=== PATIENT | male | born 1985 | race Hispanic/Latino ===

== ENCOUNTER 2021-05-13 11:29 | Emergency (ER) | payer OTHER ==
[~2021-05-13] VITALS: Ht 154.9 cm; Wt 86.2 kg
[2021-05-13 12:51] VITALS: BP 115/75
== END 2021-05-13 12:52 | disposition home or self-care (01) ==
LOC: EDH 11:29
DX: T63.301A Toxic effect of unspecified spider venom, accidental (unintentional), initial encounter (principal); Y92.89 Other specified places as the place of occurrence of the external cause
CPT/HCPCS: 99281